=== PATIENT | male | born 1980 | race Caucasian/White ===

== ENCOUNTER 2023-07-18 21:29 | Emergency (ER) | payer OTHER ==
[~2023-07-18] VITALS: Ht 170.2 cm; Wt 70.3 kg
[2023-07-18 21:33] VITALS: BP_SYST 145; PULSE 97; RESP 16; TEMP 97.7; O2SAT 98
[2023-07-18 21:52] VITALS: BP_SYST 145; PULSE 97; RESP 16; TEMP 97.7; O2SAT 98
== END 2023-07-18 23:20 ==
LOC: SED 21:29
DX: Z02.89 Encounter for other administrative examinations (principal); I10 Essential (primary) hypertension; Z79.899 Other long term (current) drug therapy
CPT/HCPCS: 99283